=== PATIENT | female | born 1955 | race Caucasian/White ===

== ENCOUNTER → 2018-06-05 | Outpatient (CLI) | payer OTHER ==
[2018-06-09 15:06] LABS: HPV 16 Negative (Negative); HPV 18 Negative (Negative); HPV OTHER HR TYPES Negative (Negative)
== END | disposition home or self-care (01) ==
LOC: LAB SHORT 15:46 → LAB 15:46
PROVIDERS: Physician Assistant
DX: Z12.4 Encounter for screening for malignant neoplasm of cervix (principal)
CPT/HCPCS: 87624; G0145

== ENCOUNTER → 2024-01-23 | Outpatient (CLI) | payer OTHER ==
[2024-01-23 18:20] LABS: Free Thyroxine 1.01 ng/dL (0.70-1.60)
[2024-01-23 18:22] LABS: Thyroid Stimulating Hormone 1.08 uIU/mL (0.360-4.800)
== END ==
LOC: LAB 13:59 → LAB SHORT 13:59
PROVIDERS: Internal Medicine
DX: E03.9 Hypothyroidism, unspecified (principal)
CPT/HCPCS: 84439; 84443